=== PATIENT | male | born 1965 | race Caucasian/White ===

== ENCOUNTER 2016-12-03 18:33 | Emergency (ER) | payer BC ==
[~2016-12-03] VITALS: Ht 185.4 cm; Wt 83.9 kg
[~2016-12-03 18:33] MED LIST: PREDNISONE10 MG; VALIUM5 MG
[2016-12-03 19:11] LABS: HEMATOCRIT 41.7 % (38.0-50.0); MCH 29.5 PG (29.0-34.0); MCHC 33.6 G/DL (30.0-36.0); MEAN PLAT.VOLUME 8.9 uM^3 (9.0-12.4); PLATELET COUNT 264 K/uL (156-360); RBC DIS.WIDTH-CV 12.8 % (11.8-14.6); RBC DIS.WIDTH-SD 41.5 % (39-53); RED BLOOD COUNT 4.74 M/uL (4.00-5.50); WHITE BLOOD COUNT 6.5 K/uL (4.1-10.2)
[2016-12-03 19:29] LABS: CHLORIDE 106 mEq/L (99-109); POTASSIUM 3.9 mEq/L (3.7-5.4); SODIUM 139 mEq/L (136-147)
[2016-12-03 19:31] LABS: GLUCOSE 96 mg/dL (70-99)
[2016-12-03 19:32] LABS: ANION GAP 7 MEQ/L (2-14)
[2016-12-03 19:33] LABS: TOTAL BILIRUBIN 0.3 mg/dL (0.0-1.0)
[2016-12-03 19:34] LABS: ALKALINE PHOSPHATASE 88 IU/L (3-129)
[2016-12-03 19:35] LABS: GFR ESTIMATE (CALCULATED) > 59 mL/min/; TROP-I INTERPRETATION NEGATIVE; TROPONIN-I < 0.01 ng/mL (0.0-0.30)
[2016-12-03 19:36] LABS: UREA NITROGEN (BUN) 12 mg/dL (9-23)
[2016-12-03] MEDS ORDERED: BUPROPION XL150 MG PO (19:36)
[2016-12-03 21:59] LABS: TROP-I INTERPRETATION NEGATIVE; TROPONIN-I < 0.01 ng/mL (0.0-0.30)
[2016-12-03] MEDS ORDERED: FLEXERIL10 MG PO (22:01)
[2016-12-03 22:16] VITALS: BP 130/95
== END 2016-12-03 22:17 | disposition home or self-care (01) ==
LOC: EME 18:33 → RME 18:33
PROVIDERS: Nurse Practitioner Family
DX: R07.9 Chest pain, unspecified (principal); R03.0 Elevated blood-pressure reading, without diagnosis of hypertension; F41.9 Anxiety disorder, unspecified; Z87.891 Personal history of nicotine dependence
CPT/HCPCS: 71020; 80048; 80053; 84484; 85027; 93005; 99281; 99284

== ENCOUNTER 2017-06-25 13:29 | Emergency (ER) | payer BC ==
[~2017-06-25] VITALS: Ht 185.4 cm; Wt 82.0 kg
[~2017-06-25 13:29] MED LIST changes: +BUPROPION XL150 MG PO; +FLEXERIL10 MG PO
[2017-06-25 17:18] LABS: HEMATOCRIT 35.4 % (38.0-50.0); MCH 29.4 PG (29.0-34.0); MCHC 33.9 G/DL (30.0-36.0); MCV 86.8 FL (86-99); PLATELET COUNT 225 K/uL (156-360); RBC DIS.WIDTH-CV 12.5 % (11.8-14.6); RED BLOOD COUNT 4.08 M/uL (4.00-5.50); WHITE BLOOD COUNT 6.4 K/uL (4.1-10.2)
[2017-06-25] MEDS ORDERED: ZITHROMAX Z-PA250 MG PO (18:17)
[2017-06-25 18:39] VITALS: BP 109/62
== END 2017-06-25 18:40 | disposition home or self-care (01) ==
LOC: EME 13:29
PROVIDERS: Physician Assistant
DX: J18.9 Pneumonia, unspecified organism (principal); Z87.891 Personal history of nicotine dependence
CPT/HCPCS: 71020; 83605; 85027; 87040; 99281; 99284; J0696; J0780; J1885; J7030; J7050

== ENCOUNTER 2018-04-02 15:33 | Emergency (ER) | payer BC ==
[~2018-04-02] VITALS: Ht 185.4 cm; Wt 86.9 kg
[~2018-04-02 15:33] MED LIST changes: +ZITHROMAX Z-PA250 MG PO
[2018-04-02 17:27] LABS: BASOPHIL (%) 0.6 % (0-1); EOSINOPHIL (%) 1.7 % (0-5); EOSINOPHIL COUNT 0.1 K/uL (0-0.3); HEMATOCRIT 40.5 % (38.0-50.0); HEMOGLOBIN 13.8 G/DL (12.5-16.6); IMMATURE GRANULOCYTE (%) 0.6 % (0.0-0.7); LYMPHOCYTE (%) 28.4 % (15-42); LYMPHOCYTE COUNT 1.9 K/uL (1.0-2.8); MCH 30.1 PG (29.0-34.0); MCHC 34.1 G/DL (30.0-36.0); MCV 88.2 FL (86-99); MONOCYTE (%) 9.7 % (3-12); MONOCYTE COUNT 0.6 K/uL (0-0.8); NEUTROPHIL COUNT 3.9 K/uL (1.8-6.4); PLATELET COUNT 245 K/uL (156-360); RBC DIS.WIDTH-CV 13.1 % (11.8-14.6); RBC DIS.WIDTH-SD 42.2 % (39-53); RED BLOOD COUNT 4.59 M/uL (4.00-5.50); WHITE BLOOD COUNT 6.6 K/uL (4.1-10.2)
[2018-04-02 17:36] LABS: ALBUMIN 4.2 g/dL (3.2-4.8); CHLORIDE 106 mEq/L (99-109); POTASSIUM 4.3 mEq/L (3.7-5.4); SODIUM 139 mEq/L (136-147)
[2018-04-02 17:38] LABS: GLUCOSE 101 mg/dL (70-99)
[2018-04-02 17:39] LABS: TOTAL PROTEIN 7.1 g/dL (6.4-8.3)
[2018-04-02 17:40] LABS: TOTAL BILIRUBIN 0.4 mg/dL (0.0-1.0)
[2018-04-02 17:42] LABS: ALKALINE PHOSPHATASE 97 IU/L (3-129); CREATININE 0.8 mg/dL (0.6-1.3); GFR ESTIMATE (CALCULATED) > 59 mL/min/ (58.99-99999)
[2018-04-02 17:43] LABS: UREA NITROGEN (BUN) 13 mg/dL (9-23)
[2018-04-02 17:44] LABS: AST (GOT) 18 IU/L (2-34)
[2018-04-02 17:45] LABS: ALT (GPT) 15 IU/L (3-49)
[2018-04-02 19:14] LABS: APPEARANCE CLEAR ((CLEAR)); BILIRUBIN NEGATIVE; BLOOD NEGATIVE; COLOR YELLOW ((YELLOW)); GLUCOSE (STRIP) NEGATIVE; KETONES NEGATIVE; LEUKOCYTES NEGATIVE; NITRITE NEGATIVE; PROTEIN (STRIP) NEGATIVE; UCUL ADDED? NO; UROBILINOGEN 0.2 MG/DL (0.2-1.0)
[2018-04-02] MEDS ORDERED: NORCO 5/3251 TABLET PO (20:17)
[2018-04-02] MEDS ORDERED: MOTRIN800 MG PO (20:17)
[2018-04-02] MEDS ORDERED: SKELAXIN800 MG PO (20:17)
[2018-04-02 20:57] VITALS: BP 140/84
== END 2018-04-02 21:06 | disposition home or self-care (01) ==
LOC: EME 15:33 → RME 15:33
PROVIDERS: Physician Assistant
DX: S20.212A Contusion of left front wall of thorax, initial encounter (principal); R10.12 Left upper quadrant pain; W17.89XA Other fall from one level to another, initial encounter; K57.30 Diverticulosis of large intestine without perforation or abscess without bleeding; N28.1 Cyst of kidney, acquired
CPT/HCPCS: 71046; 74177; 80053; 81003; 85025; 99281; 99285; J3010; J7030